=== PATIENT | female | born 1960 | race Caucasian/White ===

== ENCOUNTER 2020-03-16 03:30 | Emergency (ER) | payer SELFPAY ==
[~2020-03-16] VITALS: Ht 154.9 cm; Wt 57.6 kg
[2020-03-16 03:35] VITALS: BP 159/87
--- NOTE | 2020-03-16 03:43 | NUR ---
PT TAKEN TO BED 8
--- NOTE | 2020-03-16 03:48 | NUR ---
Dr. Felix examining patient.
[2020-03-16] MEDS ORDERED: KETOROLAC 30 MG/ML VIAL IM ONE (03:55)
[2020-03-16] MEDS ORDERED: HYDROcodone/APAP 5/325 MG 1 TAB TAB PO ONE (03:55)
--- NOTE | 2020-03-16 04:47 | NUR ---
59 YO FEMALE BIB SELF FOR C/O BODY ACHES X 2-3 WEEKS. PT DENIES FEVER/CHILLS @ THIS TIME. DENIES CP/SOB. PT AMB @ BEDSIDE. + NAUSEA. LUNGS CLEAR EVEN UNLABORED. ABD SOFT NON DISTENDED. + BS X4 QUADRANTS. DENIES DYSURIA. MUNA LOCKED IN LOWEST POSITIO. WILL UPDATE ERMD HX DM RX DENIES AX DENIES
[2020-03-16] MEDS ORDERED: BLOOD GLUCOSE MONITORING 1 DEV DEV FS SCH (06:00)
[2020-03-16 06:06] VITALS: BP 150/82
== END 2020-03-16 06:06 | disposition home or self-care (01) ==
LOC: MED 03:30
DX: M79.10 Myalgia, unspecified site (principal)
CPT/HCPCS: 82948; 96372; 99283; J1885